=== PATIENT | male | born 1945 ===

== ENCOUNTER → 2017-06-01 | Outpatient (CLI) | payer OTHER ==
[~2017-06-01] VITALS: Ht 152.4 cm; Wt 73.9 kg
== END | disposition home or self-care (01) ==
LOC: OFIC 805 07:21
DX: H61.23 Impacted cerumen, bilateral (principal); H90.3 Sensorineural hearing loss, bilateral; J31.0 Chronic rhinitis; G47.33 Obstructive sleep apnea (adult) (pediatric); R06.83 Snoring